=== PATIENT | female | born 1980 ===

== ENCOUNTER 2021-08-10 12:06 | Emergency (ER) | payer BC, SELFPAY ==
--- NOTE | ~2021-08-10 | XR_ITS ---
EXAMINATION: XR CHEST CLINICAL INFORMATION: Chest pain COMPARISON: None TECHNIQUE: Frontal view of the chest was obtained. FINDINGS: Lungs are clear. There is no airspace consolidation or groundglass opacity or effusion. No pneumothorax or pleural reaction. The costophrenic sulci are clear. The heart is normal in size. The hilar and mediastinal contours and visualized bony structures are unremarkable. XR/XR chest 1V IMPRESSION: Unremarkable examination.
--- NOTE | 2021-08-10 12:24 | ECG_ITS ---
Test Reason : CHEST PAIN Blood Pressure : / mmHG Vent. Rate : 081 BPM Atrial Rate : 081 BPM P-R Int : 142 ms QRS Dur : 086 ms QT Int : 380 ms P-R-T Axes : 054 -15 007 degrees QTc Int : 441 ms Normal sinus rhythm Cannot rule out Anterior infarct , age undetermined Abnormal ECG No previous ECGs available Referred By: Generic ED Physician Electronically Signed By:Emmett France
[2021-08-10 12:31] VITALS: BP 135/89; PULSE 91; RESP 19; TEMP 36.8; O2SAT 99; BMI 29.7
[2021-08-10 13:00] LABS: MANUAL DIFF FLAG NO
[2021-08-10 13:02] LABS: Basophils Percent Auto 0.5 % (0-2); Eosinophils Absolute Auto 0.1 X10*3/uL (0.0-0.4); Eosinophils Percent Auto 0.9 % (0-4); Hematocrit 36.1 % (37.0-47.0); Hemoglobin 12.6 g/dl (12.0-16.0); Imm Gran Abs Auto 0.01 X10*3/uL (0.00-0.03); Imm Gran Pct Auto 0.2 % (0.0-0.4); Lymphocytes Absolute Auto 2.1 X10*3/uL (1.2-4.9); Lymphocytes Percent Auto 37.7 % (20-40); Mean Corpuscular HGB Conc 34.9 g/dl (31.0-35.0); Mean Corpuscular Hemoglobin 31.9 pg (27.0-33.0); Mean Corpuscular Volume 91.4 fL (80.0-98.0); Mean Platelet Volume 10.2 fL (9.4-12.3); Monocytes Absolute Auto 0.3 X10*3/uL (0.1-1.2); Monocytes Percent Auto 6.1 % (2-11); Neutrophils Percent Auto 54.6 % (45-73); Platelet Count 282 X10*3/uL (160-400); Red Blood Count 3.95 X10*6/uL (4.20-5.50); Red Cell Distribution Width 11.6 % (11.0-16.0); White Blood Count 5.6 X10*3/uL (4.8-10.8)
[2021-08-10 13:18] LABS: Anion Gap 14 (12-20); Blood Urea Nitrogen 14 mg/dL (9-16); Calcium 9.7 mg/dL (8.4-10.2); Carbon Dioxide 22 mmol/L (22-29); Chloride 104 mmol/L (96-108); Creatinine Clr Calc Pharmacy 70.2; Estimated Glomerular Filt Rate 54; Glucose Random 108 mg/dL (60-115); Potassium 3.8 mmol/L (3.3-5.1); Sodium 136 mmol/L (135-145)
[2021-08-10 13:26] LABS: Troponin-I High Sensitivity < 3.5 ng/L (<3.5-17.0)
== END 2021-08-10 15:50 | disposition left against medical advice (07) ==
LOC: HO.ED 15:51
PROVIDERS: Emergency Provider Emergency Medicine
DX: R07.9 Chest pain, unspecified (principal)
CPT/HCPCS: 36415; 71045; 80048; 84484; 85025; 93005; 99283

== ENCOUNTER 2025-01-23 10:23 | Emergency (ER) | payer BC, SELFPAY ==
--- NOTE | ~2025-01-23 | NM_ITS ---
EXAMINATION: NM LUNG PERFUSION HISTORY: concern for PE, anaphylaxis to contrast.. TECHNIQUE: A pulmonary perfusion scan was performed following intravenous administration of 3.5 mCi technetium 99m-MAA. Images were obtained multiple projections. COMPARISON: Correlation is made with PA and lateral views of the chest performed earlier in the day. FINDINGS: There is a homogeneous distribution of activity throughout both lungs. No segmental or large subsegmental perfusion defects are identified. According to modified PIOPED II criteria, pulmonary embolism is absent. NM/NM pul perfusion IMPRESSION: Pulmonary embolism absent. Electronically signed by: Frantz Galvin MD 01/23/2025 03:19 PM EDT RP
--- NOTE | ~2025-01-23 | XR_ITS ---
EXAMINATION: XR CHEST 2 VIEWS HISTORY: SOB, need for VQ scan COMPARISON: Comparison is made with the prior examination dated 08/10/2021. FINDINGS: PA and lateral views of the chest are submitted. The lungs are expanded and clear. There is no pleural effusion, pneumothorax, or pulmonary vascular congestion. The heart is normal in size. The bones are intact. XR/XR chest 2V IMPRESSION: No acute cardiopulmonary abnormality. Electronically signed by: Frantz Galvin MD 01/23/2025 12:05 PM EDT
--- NOTE | 2025-01-23 10:29 | ED_ITS ---
HPI - General Adult General Chief complaint: Arrhythmia/Palpitations Stated complaint: ANXIETY,BP 164/111,[employer] Time Seen by Provider: 01/23/25 10:29 Source: patient and EMS Mode of arrival: EMS Limitations: no limitations History of Present Illness ED Provider: Georgia Portillo PA-C HPI narrative: This is a 44 year old female with a history of anxiety, depression, GERD, and high blood pressure without a diagnosis of hypertension that presents for evaluation of palpitations and racing heart. She states that this morning she briefly had shortness of breath but it is not present now. She takes oral contraceptives but she is not sure which one. She has no history of bleeding or clotting disorders in her family. She denies any recent travel but endorses that she had COVID about two weeks ago. She endorses occasional marijuana gummy use but denies any history of cocaine or other recreational drug use. She endorses periodically having 1-2 alcoholic beverages in the evenings. She endorses that her anxiety has been increasing despite treatment with fluoxetine and her therapist has encouraged her to request a medication change. She has had episodes of feeling shaky with palpitations. She has felt more fatigued lately. She endorses heat intolerance. She has had increasing amounts of diarrhea. She states that there is a family member that takes methimazole for a thyroid condition. She decided to come in today because the shakiness and palpitations are increased more than prior episodes. Related Data Allergies Allergy/AdvReac Type Severity Reaction Status Date / Time amoxicillin Allergy Unknown Verified 01/23/25 10:35 Iodinated Contrast Media Allergy Unknown Verified 01/23/25 10:35 (Contrast Dye) Penicillins Allergy Unknown Verified 01/23/25 10:35 Review of Systems 2 Constitutional: Constitutional: Reports as per HPI Eyes: Eyes: Reports as per HPI ENT: Reports as per HPI Cardiovascular: Cardiovascular: Reports as per HPI Respiratory: Respiratory: Reports as per HPI Gastrointestinal: Gastrointestinal: Reports as per HPI Genitourinary: Genitourinary: Reports as per HPI Musculoskeletal: Musculoskeletal: Reports as per HPI Integumentary/Breasts: Skin/Breast: Reports as per HPI Neurologic: Reports as per HPI Psychiatric: Psychiatric: Reports as per HPI Endocrine: Endocrine: Reports as per HPI Hematologic/Lymphatic: Hematologic/Lymphatic: Reports as per HPI Allergic/Immunologic: Allergic/Immunologic: Reports as per HPI PMF Past Medical History Attestation statement: The following information was validated with the patient. Source: old records reviewed and nursing notes reviewed Medical History No pertinent past medical history Social History Social History Advance Directives: No Advance Directives Information Provided: No Physical Exam ED Vital Signs: Vital Signs - 24 hr 01/23/25 10:31 01/23/25 11:58 01/23/25 15:49 Temperature 98.8 F 98.6 F Pulse Rate 111 H 109 H 90 Respiratory Rate 20 15 16 Blood Pressure 155/96 H 139/86 136/86 Pulse Oximetry 99 98 98 Oxygen Delivery Method Room Air Room Air Room Air 01/23/25 15:59 Temperature 98.5 F Pulse Rate 90 Respiratory Rate 16 Blood Pressure 136/86 Pulse Oximetry 98 Oxygen Delivery Method Room Air BMI result Body Mass Index 25.8 Const General: cooperative, alert, awake and anxious Nutritional Appearance: well nourished Orientation/consciousness: oriented to person, oriented to place, oriented to time and patient oriented x3 HENMT Head: Yes normal to inspection, Yes normocephalic and Yes atraumatic Ears: external ears normal General nose exam: Normal external nose present Face and sinus: Yes normal facial exam Mouth: Normal oral and palatal mucosa present, no drooling and no muffled voice Eyes General: appearance normal, both eyes and all related structures Alignment and Position: other (Possible proptosis) Periorbital: periorbital findings normal Eyelids: Yes eyelids normal Conjunctivae: conjunctivae normal Sclerae: sclerae normal Pupils: Equal, round and reactive pupils present EOM: EOMs intact bilaterally Neck Neck: Yes normal visual inspection Resp Effort & Inspection: normal respiratory effort Auscultation: clear to auscultation bilaterally, no crackles, no rales, no rhonchi and no wheezes Cardio Rate: tachycardic Rhythm: regular rhythm Heart sounds: no gallops, no murmurs and no rubs GI Auscultation: normal bowel sounds Skin General skin exam: no rashes or lesions noted Nails: other (Onycholysis) Neuro General: oriented to person, oriented to place, oriented to time, patient oriented x3 and moves all extremities Cranial nerves: Yes Equal, round and reactive pupils present Cognition (Neuro): normal cognition Extrem General: Yes normal to inspection, Yes no pedal edema and Yes no calf tenderness Right lower extremity: normal to inspection Left lower extremity: normal to inspection Psych Appearance: grossly normal Mental Status: mental status grossly normal Affect: Anxious affect present Attitude: cooperative Thought process: Normal thought process present Thought content: Normal thought content present Insight: Good insight present (Psych) Judgement: Good judgement present (Psych) Medications Administered Discontinued Medications Generic Name Dose Route Start Last Admin Trade Name Bryan PRN Reason Stop Dose Admin Diazepam 2.5 mg 01/23/25 11:11 01/23/25 11:34 Diazepam 10 Mg/2 Ml Cartridge IVPUSH 01/23/25 11:12 2.5 mg STAT STA Administration Sodium Chloride 1,000 mls @ 999 mls/hr 01/23/25 11:15 01/23/25 12:48 Ns IV 01/23/25 12:15 Infused .Q1H1M KI Infusion Medical Decision Making Medical Decision Making MDM Narrative: Patient is a 44 year old assigned female at with a history of anxiety, depression, GERD, and high blood pressure without a diagnosis of hypertension presenting to the emergency department today with palpitations and shakiness. Patient's physical exam was as noted in the physical exam portion of this note. Patient's blood work was unremarkable. Patient's urine showed no acute process. Patient's EKG showed sinus tachycardia Patient's chest x-ray showed no acute process. Patient's VQ scan showed no evidence of pulmonary embolism. Patient's clinical presentation is most consistent with sinus tachycardia due to unknown origin. I explained my physical exam findings as well as all test results to the patient. I answered all questions asked by the patient. I stressed the importance of the patient taking her medication as directed (either prescribed or as the over the counter packaging recommends). I stressed the importance of the patient following up with her primary care provider and the cardiology team. I stressed the importance of the patient returning to the emergency department immediately if her symptoms were to worsen or if she were to develop any dizziness, shortness of breath, difficulty breathing, chest pain, blurry vision, loss of vision, nausea, vomiting, abdominal pain, fever, chills, back pain, or any other complaints. Patient verbalized agreement and understanding with this treatment plan and discharge. Differential Diagnosis Differential Diagnoses: The differential diagnosis associated with the presentation includes Sinus tachycardia PE Hyperthyroidism Admission/Observation Consideration of admission/observation: Escalation of care including admission/observation considered Patient would have been admitted to the hospital had her work up had any findings where hospital admission was appropriate and her clinical presentation warranted hospital admission. Lab Data [facility] Lab Attestation statement: I reviewed the patient's lab results. My interpretation of these results are in the [facility] Rationale portion of this note. 01/23/25 10:47 01/23/25 10:47 Labs: Lab Results 01/23/25 01/23/25 Range/Units 10:47 11:34 WBC 5.7 (4.8-10.8) X10*3/uL RBC 3.93 L (4.20-5.50) X10*6/uL Hgb 12.6 (12.0-16.0) g/dl Hct 34.9 L (37.0-47.0) % MCV 88.8 (80.0-98.0) fL MCH 32.1 (27.0-33.0) pg MCHC 36.1 H (31.0-35.0) g/dl RDW 12.5 (11.0-16.0) % Plt Count 277 (160-400) X10*3/uL MPV 9.3 L (9.4-12.3) fL Immature Gran % (Auto) 0.2 (0.0-0.4) % Neut % (Auto) 72.2 (45-73) % Lymph % (Auto) 21.7 (20-40) % [place] % (Auto) 5.1 (2-11) % Eos % (Auto) 0.4 (0-4) % Baso % (Auto) 0.4 (0-2) % Lymph # (Auto) 1.2 (1.2-4.9) X10*3/uL [place] # (Auto) 0.3 (0.1-1.2) X10*3/uL Eos # (Auto) 0.0 (0.0-0.4) X10*3/uL Baso # (Auto) 0.0 (0.0-0.2) X10*3/uL Abs Immat Gran (auto) 0.01 (0.00-0.03) X10*3/uL Absolute Neuts (auto) 4.1 (2.0-8.3) x10*3/uL Absolute Nucleated RBC 0.000 (0.0-0.012) X10*3/uL Nucleated RBC % (auto) 0.0 (0.0-0.2) /100WBC PT 11.7 (10.9-12.4) SEC INR 1.0 (0.9-1.1) APTT 25.9 L (26.7-34.1) SEC Sodium 138 (135-145) mmol/L Potassium 3.6 (3.3-5.1) mmol/L Chloride 106 (96-108) mmol/L Carbon Dioxide 23 (22-29) mmol/L Anion Gap 13 (12-20) BUN 6 L (9-16) mg/dL Creatinine 0.92 (0.5-1.4) mg/dL Estim Creat Clear Calc 77.5 Estimated GFR > 60 Random Glucose 95 (60-115) mg/dL Calcium 8.4 D (8.4-10.2) mg/dL Magnesium 1.7 (1.6-2.6) mg/dL Troponin I High Sens < 2.7 (<3.5-17.0) ng/L NT-Pro-B Natriuret Pep 217.3 (<300) pg/mL TSH 1.33 (0.32-4.0) uIU/mL Free T4 0.86 (0.71-1.85) ng/dL Thyroxine (T4) Cancelled Beta HCG, Quant < 2 mIU/mL Urine Color Yellow Urine Appearance Clear Urine pH 6.5 (5.0-9.0) Ur Specific [place] <= 1.005 (1.005-1.025) Urine Protein Negative (Neg-Trace) mg/dL Urine Glucose (UA) Negative (Negative) mg/dL Urine Ketones Negative (Negative) mg/dL Urine Blood Negative (Negative) Urine Nitrite Negative (Negative) Ur Leukocyte Esterase Negative (Negative) Independent Interpretation I performed an independent interpretation of an: EKG, Plain X-Ray and Vq/Perfusion Scan Interpretation: My interpretation is in agreement with the radiologist's impression of these imaging studies. L Reason for Exam: SOB, need for VQ scan EXAMINATION: XR CHEST 2 VIEWS HISTORY: SOB, need for VQ scan COMPARISON: Comparison is made with the prior examination dated 08/10/2021. FINDINGS: PA and lateral views of the chest are submitted. The lungs are expanded and clear. There is no pleural effusion, pneumothorax, or pulmonary vascular congestion. The heart is normal in size. The bones are intact. XR/XR chest 2V IMPRESSION: No acute cardiopulmonary abnormality. Electronically signed by: Frantz Galvin MD 01/23/2025 12:05 PM EDT Dictated By: Frantz Galvin MD Signed By: Electronically signed by Frantz Galvin MD 01/23/25 1205 Reason for Exam: concern for PE, anaphylaxis to contrast. EXAMINATION: NM LUNG PERFUSION HISTORY: concern for PE, anaphylaxis to contrast.. TECHNIQUE: A pulmonary perfusion scan was performed following intravenous administration of 3.5 mCi technetium 99m-MAA. Images were obtained multiple projections. COMPARISON: Correlation is made with PA and lateral views of the chest performed earlier in the day. FINDINGS: There is a homogeneous distribution of activity throughout both lungs. No segmental or large subsegmental perfusion defects are identified. According to modified PIOPED II criteria, pulmonary embolism is absent. NM/NM pul perfusion IMPRESSION: Pulmonary embolism absent. Electronically signed by: Frantz Galvin MD 01/23/2025 03:19 PM EDT Dictated By: Frantz Galvin MD Signed By: Electronically signed by Frantz Galvin MD 01/23/25 1519 I independently interpreted this EKG and am in agreement with the below findings: Vent. Rate: 113 BPM Atrial Rate: 113 BPM P-R Int: 134 ms QRS Dur: 80 ms QT Int: 342 ms P-R-T Axes: 46 -25 8 degrees QTcB Int: 469 ms Sinus tachycardia with occasional Premature ventricular complexes When compared with ECG of 10-Aug-2021 12:44, Premature ventricular complexes are now Present T wave amplitude has increased in Anterior leads Electronically Signed By: Emmett France Dictated By: Emmett France MD Signed By: Electronically signed by Emmett France MD 01/23/25 2814 Radiology Impression Discussion of test interpretation with radiology: I have reviewed the radiologist's reading. Discharge Plan Discharge Clinical Impression: Sinus tachycardia Patient Disposition: Home, Self-Care Instructions: Tachycardia (ED) Additional Instructions: Your work up today is reassuring there is no EMERGENT cause for your symptoms. You should follow up with the cardiology team for further work up on your elevated heart rate. IF you are prescribed home medications and/or you are taking over the counter medications at home - it is very important you continue to do so as prescribed / directed unless told otherwise. Follow up with your primary care provider. Return to the emergency department immediately if your symptoms worsen or if you develop any numbness, tingling, dizziness, shortness of breath, difficulty breathing, chest pain, blurry vision, loss of vision, nausea, vomiting, abdominal pain, fever, chills, back pain, or any other complaints. Please see the information below about our Patient Portal. If you are not yet enrolled in the [facility] Patient Portal, you will receive an enrollment email invitation following your visit to any [facility] [place] setting. You may also self-enroll in the Patient Portal by visiting our website: [email or web address] The following information is required to access the Patient Portal: - Your [facility] Medical Record Number - Your personal home email address (must match what is in your electronic medical record, Registration staff can assist with this) - Name - Date of Capabilities of the Patient Portal: - Message some providers - View upcoming appointments - Access your health summary, medical history, and visit history - View current conditions and allergies - View procedure and lab results - View your medications, including guidelines, side effects, and precautions - Complete pre-appointment questionnaires requested by your provider - Ready summary reports of your office visits and procedures To access the Patient Portal Mobile [employer], follow these directions: - Search [employer] in the [employer] Store or [employer] Store - Download the [employer] - Search for [facility] - Enter your login/password Referrals: [facility] [Provider Group] Referral Note: Call to establish and follow up with the cardiology team for your elevated heart rate. Dania Solis NP [Primary Care Provider, Family Practice] Stand Alone Forms: Work/School Release Interventions: ED Discharge Assessment Last Done: 01/23/25 15:59 Discharge Date/Time: 01/23/25 16:00 Print Language: Bolivian
[2025-01-23 10:31] VITALS: BP 155/96; BP 220/160; PULSE 111; PULSE 113; RESP 20; TEMP 37.1; O2SAT 99; BMI 25.8
--- NOTE | 2025-01-23 10:37 | ECG_ITS ---
Test Reason : TACHY Blood Pressure : */* mmHG Vent. Rate : 113 BPM Atrial Rate : 113 BPM P-R Int : 134 ms QRS Dur : 80 ms QT Int : 342 ms P-R-T Axes : 46 -25 8 degrees QTcB Int : 469 ms Sinus tachycardia with occasional Premature ventricular complexes Otherwise normal ECG When compared with ECG of 10-Aug-2021 12:44, Premature ventricular complexes are now Present T wave amplitude has increased in Anterior leads Referred By: Generic ED Physician Electronically Signed By: Emmett France
[2025-01-23 10:52] LABS: MANUAL DIFF FLAG NO
[2025-01-23 10:57] LABS: Hematocrit 34.9 % (37.0-47.0); Hemoglobin 12.6 g/dl (12.0-16.0); Imm Gran Abs Auto 0.01 X10*3/uL (0.00-0.03); Imm Gran Pct Auto 0.2 % (0.0-0.4); Lymphocytes Absolute Auto 1.2 X10*3/uL (1.2-4.9); Mean Corpuscular HGB Conc 36.1 g/dl (31.0-35.0); Mean Corpuscular Hemoglobin 32.1 pg (27.0-33.0); Mean Corpuscular Volume 88.8 fL (80.0-98.0); NRBC Abs Auto 0.000 X10*3/uL (0.0-0.012); NRBC Pct Auto 0.0 /100WBC (0.0-0.2); Platelet Count 277 X10*3/uL (160-400); Red Blood Count 3.93 X10*6/uL (4.20-5.50); White Blood Count 5.7 X10*3/uL (4.8-10.8)
[2025-01-23 11:00] LABS: INTERNATIONAL NORM RATIO 1.0 (0.9-1.1); Prothrombin Time 11.7 SEC (10.9-12.4)
[2025-01-23 11:03] LABS: Partial Thromboplastin Time 25.9 SEC (26.7-34.1)
[2025-01-23 11:07] LABS: Anion Gap 13 (12-20); Blood Urea Nitrogen 6 mg/dL (9-16); Calcium 8.4 mg/dL (8.4-10.2); Carbon Dioxide 23 mmol/L (22-29); Chloride 106 mmol/L (96-108); Creatinine Clr Calc Pharmacy 77.5; Estimated Glomerular Filt Rate > 60; Potassium 3.6 mmol/L (3.3-5.1); Sodium 138 mmol/L (135-145)
[2025-01-23 11:16] LABS: Troponin-I High Sensitivity < 2.7 ng/L (<3.5-17.0)
[2025-01-23] MEDS: diazePAM 10 MG/2 ML CARTRIDGE 2.5 MG IVPUSH (11:34)
[2025-01-23 11:35] LABS: Magnesium 1.7 mg/dL (1.6-2.6)
[2025-01-23 11:42] LABS: NT Pro B Type Natriuretic Pept 217.3 pg/mL (<300)
[2025-01-23 11:45] LABS: Appearance Urine Clear; Glucose Urine UA Negative (Negative); PH 6.5 (5.0-9.0); Specific Gravity - Urine <= 1.005 (1.005-1.025)
[2025-01-23 11:58] VITALS: BP 139/86; PULSE 109; RESP 15; TEMP 37; O2SAT 98
[2025-01-23 11:58] LABS: Thyroid Stimulating Hormone 1.33 uIU/mL (0.32-4.0)
[2025-01-23 12:34] LABS: Free T4 (Free Thyroxine) 0.86 ng/dL (0.71-1.85)
--- NOTE | 2025-01-23 15:33 | PC.NURSE ---
ANAMARIA Portillo at bedside performing ECHO/ultrasound. Discharge afterwards, per provider.
[2025-01-23 15:49] VITALS: BP 136/86; PULSE 90; RESP 16; O2SAT 98
[2025-01-23 15:59] VITALS: BP 136/86; PULSE 90; RESP 16; TEMP 36.9; O2SAT 98
== END 2025-01-23 16:00 | disposition home or self-care (01) ==
PROVIDERS: Physician Assistant Medical; Emergency Provider Emergency Medicine; PCP Nurse Practitioner Family
DX: I49.9 Cardiac arrhythmia, unspecified (principal); R00.2 Palpitations; F41.9 Anxiety disorder, unspecified; R00.0 Tachycardia, unspecified; R10.2 Pelvic and perineal pain; R06.02 Shortness of breath; R11.0 Nausea; Z79.899 Other long term (current) drug therapy
CPT/HCPCS: 36415; 71046; 78580; 80048; 81003; 83735; 83880; 84439; 84443; 84481; 84484; 84702; 85025; 85610; 85730; 93005; 96361; 96374; 99284; A9540; J3360

== ENCOUNTER → 2025-01-23 10:37 | Outpatient (BNV) | payer BC, SELFPAY | PROVIDERS: Emergency Provider Emergency Medicine; PCP Nurse Practitioner Family; Visit Provider Internal Medicine Cardiovascular Disease | DX: I49.3 Ventricular premature depolarization (principal); R00.0 Tachycardia, unspecified | CPT/HCPCS: 93010 ==

== ENCOUNTER → 2025-01-23 11:50 | Outpatient (BNV) | payer BC, SELFPAY | PROVIDERS: Emergency Provider Emergency Medicine; PCP Nurse Practitioner Family; Visit Provider Radiology Diagnostic Radiology | DX: R06.02 Shortness of breath (principal); R00.2 Palpitations | CPT/HCPCS: 71046; 78580 ==